=== PATIENT | male | born 1955 | race Caucasian/White ===

== ENCOUNTER 2021-10-13 08:14 | Emergency (ER) | payer MEDICARE ==
[2021-10-13] MEDS ORDERED: Magnesium Citrate Solution 296 ML Bottle PO ONE (09:42)
--- NOTE | 2021-10-13 09:42 | EDM.PDOC ---
ED HPI GENERAL MEDICAL PROBLEM - General Chief Complaint: Gastrointestinal Problem Stated Complaint: TROUBLE WITH BM Time Seen by Provider: 10/13/21 09:37 Source of Information: Reports: Patient, Family History Limitations: Reports: No Limitations - History of Present Illness INITIAL COMMENTS - FREE TEXT/NARRATIVE: pt has not had abm for several days. He now has loss of appetite and nausea. He tried a supp last nite which made him have a small bm. Onset: Gradual, Other (no bm for several days. ) Duration: Day(s): Location: Reports: Abdomen Associated Symptoms: Reports: Nausea/Vomiting Abdomen Pain Score (Numeric/FACES): 7 - Related Data Allergies Allergy/AdvReac Type Severity Reaction Status Date / Time No Known Allergies Allergy Verified 10/13/21 08:38 Home Meds: Home Meds NK [No Known Home Meds] 10/13/21 [History] Social & Family History - Tobacco Use Tobacco Use Status *Q: Heavy Tobacco User Years of Tobacco use: 50 Packs/Tins Daily: 1 - Recreational Drug Use Recreational Drug Use: No ED ROS GENERAL - Review of Systems Review Of Systems: See Below Constitutional: Reports: No Symptoms HEENT: Reports: No Symptoms Respiratory: Reports: No Symptoms Cardiovascular: Reports: No Symptoms Endocrine: Reports: No Symptoms GI/Abdominal: Reports: Constipation, Other (bloated feeling still passing some gas) : Reports: No Symptoms Musculoskeletal: Reports: No Symptoms, Muscle Pain Neurological: Reports: No Symptoms ED EXAM, GI/ABD - Physical Exam Exam: See Below Text/Narrative:: pt arrived wih a history of no stools for several days. he is feeling uncomfortable. Exam Limited By: No Limitations General Appearance: Alert, Anxious, Mild Distress Ears: Normal TMs Nose: Normal Inspection Throat/Mouth: Normal Inspection Head: Atraumatic Neck: Normal Inspection Respiratory/Chest: No Respiratory Distress Cardiovascular: Regular Rate, Rhythm GI/Abdominal Exam: Other (mild tenderness) (Male) Exam: Deferred Rectal (Males) Exam: Other (pt has a large amount of sodft feeling stool in the rectum. f) Back Exam: Normal Inspection Neurological: Alert, Oriented, Normal Cognition Psychiatric: Anxious Course - Vital Signs Last Recorded V/S: Last Vital Signs Temp 36.6 C 10/13/21 08:37 Pulse 76 10/13/21 08:37 Resp 16 10/13/21 08:37 BP 136/89 10/13/21 08:37 Pulse Ox 97 10/13/21 08:37 - Orders/Labs/Meds Orders: Active Orders 24 hr Category Date Time Status Enema [RC] ASDIRECTED Care 10/13/21 08:56 Active Labs: Laboratory Tests 10/13/21 10/13/21 10/13/21 Range/Units 08:56 08:56 08:56 WBC 7.9 (4.5-11.0) K/uL RBC 5.36 (4.30-5.90) M/uL Hgb 16.1 H (12.0-15.0) g/dL Hct 47.8 (40.0-54.0) % MCV 89 (80-98) fL MCH 30 (27-31) pg MCHC 34 (32-36) % Plt Count 367 (150-400) K/uL Neut % (Auto) 73.4 H (36-66) % Lymph % (Auto) 15.6 L (24-44) % Camp % (Auto) 10.5 H (2-6) % Eos % (Auto) 0.4 L (2-4) % Baso % (Auto) 0.1 (0-1) % Sodium 139 L (140-148) mmol/L Potassium 4.8 (3.6-5.2) mmol/L Chloride 102 (100-108) mmol/L Carbon Dioxide 28 (21-32) mmol/L Anion Gap 13.8 (5.0-14.0) mmol/L BUN 15 (7-18) mg/dL Creatinine 0.8 (0.8-1.3) mg/dL Est Cr Clr Drug Dosing 98.05 mL/min Estimated GFR (MDRD) > 60 (>60) Glucose 116 H (74-106) mg/dL Lactic Acid 1.0 (0.4-2.0) mmol/L Calcium 9.6 (8.5-10.1) mg/dL Total Bilirubin 0.3 (0.2-1.0) mg/dL AST 10 L (15-37) U/L ALT 21 (12-78) U/L Alkaline Phosphatase 64 (46-116) U/L C-Reactive Protein (0.0-0.3) mg/dL Total Protein 7.7 (6.4-8.2) g/dL Albumin 4.1 (3.4-5.0) g/dL Globulin 3.6 H (2.3-3.5) g/dL Albumin/Globulin Ratio 1.1 L (1.2-2.2) 10/13/21 Range/Units 08:56 WBC (4.5-11.0) K/uL RBC (4.30-5.90) M/uL Hgb (12.0-15.0) g/dL Hct (40.0-54.0) % MCV (80-98) fL MCH (27-31) pg MCHC (32-36) % Plt Count (150-400) K/uL Neut % (Auto) (36-66) % Lymph % (Auto) (24-44) % Camp % (Auto) (2-6) % Eos % (Auto) (2-4) % Baso % (Auto) (0-1) % Sodium (140-148) mmol/L Potassium (3.6-5.2) mmol/L Chloride (100-108) mmol/L Carbon Dioxide (21-32) mmol/L Anion Gap (5.0-14.0) mmol/L BUN (7-18) mg/dL Creatinine (0.8-1.3) mg/dL Est Cr Clr Drug Dosing mL/min Estimated GFR (MDRD) (>60) Glucose (74-106) mg/dL Lactic Acid (0.4-2.0) mmol/L Calcium (8.5-10.1) mg/dL Total Bilirubin (0.2-1.0) mg/dL AST (15-37) U/L ALT (12-78) U/L Alkaline Phosphatase (46-116) U/L C-Reactive Protein 0.38 H (0.0-0.3) mg/dL Total Protein (6.4-8.2) g/dL Albumin (3.4-5.0) g/dL Globulin (2.3-3.5) g/dL Albumin/Globulin Ratio (1.2-2.2) Meds: Medications Discontinued Medications Generic Name Dose Route Start Last Admin Trade Name Freq PRN Reason Stop Dose Admin Magnesium Citrate 296 ml 10/13/21 09:42 Magnesium Citrate Solution 296 Ml Bottle PO 10/13/21 09:43 ONETIME ONE - Re-Assessments/Exams Free Text/Narrative Re-Assessment/Exam: 10/13/21 09:47 pt had a tap water enema which produced a large soft stool. Departure - Departure Time of Disposition: 09:39 Disposition: Home, Self-Care 01 Condition: Fair Clinical Impression: Constipation - Discharge Information Referrals: PCP,None [Primary Care Provider] - Forms: ED Department Discharge Care Plan Goals: high fiber diet, push fluids, send a bottle of mag citrate home with the pt and he should drink a 1/2 bottle when he gets home. use some prunes daily for the ne xt few days, exercise regularly. Pt is due for a colonoscopy and this should be scheduled by his primary critical care unit nurse. Sepsis Event Note (ED) - Evaluation Sepsis Screening Result: No Definite Risk - Focused Exam Vital Signs: Vital Signs Temp Pulse Resp BP Pulse Ox 10/13/21 08:37 36.6 C 76 16 136/89 97 10/13/21 08:34 36.6 C 76 16 136/89 97 - My Orders Last 24 Hours: My Active Orders 10/13/21 08:56 Enema [RC] ASDIRECTED - Assessment/Plan Last 24 Hours: My Active Orders 10/13/21 08:56 Enema [RC] ASDIRECTED
== END 2021-10-13 09:55 | disposition home or self-care (01) ==
LOC: JP.ED 08:14
DX: K59.00 Constipation, unspecified (principal); Z72.0 Tobacco use
CPT/HCPCS: 36415; 80053; 83605; 85025; 86140; 99283; A9270